=== PATIENT | female | born 1985 | race Caucasian/White ===

== ENCOUNTER 2016-12-24 09:44 | Inpatient (IN) ==
[2016-12-24] MEDS ORDERED: *HR* LORazepam 1 MG TABLET PO ONE (09:59)
--- NOTE | 2016-12-24 10:07 | Emergency Department Note ---
Disposition Clinical Impression: Bipolar 1 disorder, manic, moderate Disposition: Admitted As Inpatient Condition: Fair Time of Disposition: 13:11 Psych HPI - General Chief Complaint: ED Psychiatric Symptoms Stated Complaint: Psych Consult Time Seen by Provider: 12/24/16 09:56 Source: family Mode of arrival: private vehicle Limitations: no limitations Nursing Notes Reviewed: Yes Vital Signs Reviewed: Yes - History of Present Illness HPI Narrative: 31-year-old female patient presents to the emergency department in a manic episode. It is reported by her mother at the bedside that she is concerned that she possibly drank some "essential oils." Patient has had previous manic episodes in the past and was recently released from a psychiatric facility. She denies any recent trauma. Pt complaint: anxiety, other (manic) If medical clearance, reason: psychiatric condition Onset (ago): day(s) (12) Duration: intermittent, getting worse History of similar episodes: Yes Improves with: none Worsens with: none Associated Psychiatric Symptoms: homicidal ideation, racing thoughts Associated symptoms: Reports: denies other symptoms Traumatic symptoms: denies traumatic injury Treatments prior to arrival: psychiatric referral Self harm or harm to others: admits thoughts of harming others, denies having a plan - Related Data Home Medications Medication Instructions Recorded Confirmed Buspirone HCl [Buspar] 15 mg PO TID 12/24/16 Lamotrigine [Lamictal] 25 mg PO BID 12/24/16 12/24/16 Nicotine Polacrilex [Nicotine Gum] 2 mg BC Q2H PRN 12/24/16 12/24/16 Allergies Allergy/AdvReac Type Severity Reaction Status Date / Time chlorpromazine AdvReac See Verified 12/24/16 09:53 [From Thorazine] Comments divalproex sodium AdvReac See Verified 12/24/16 09:53 [From Depakote] Comments haloperidol [From Haldol] AdvReac See Verified 12/24/16 09:53 Comments All systems ED: reviewed and negative except as stated. Constitutional: Denies: fever, chills Cardiovascular: Denies: chest pain Respiratory: Denies: cough, dyspnea Gastrointestinal: Denies: abdominal pain, nausea, vomiting Genitourinary: Denies: urgency, dysuria, frequency Musculoskeletal: Denies: back pain, neck pain Integumentary: Denies: rash, abrasion, lesions Neurological: Denies: headache Psychiatric: Reports: anxiety, homicidal thoughts Past Medical History - Past Medical History Attestation: Yes The following information was validated with the patient. Source: patient, obtained from family, nursing notes reviewed Medical history: Reports: no medical history Psychiatric history: Reports: bipolar, PTSD - Social History Smoking Status: Current every day smoker Alcohol use: Reports: rarely Drug use: Reports: marijuana Physical Exam - General General appearance: alert, anxious, other (manic) - Head Head exam: atraumatic, normocephalic, normal inspection - Eye Eye exam: Present: normal appearance, PERRL - Neck Neck exam: Present: normal inspection, full ROM, trachea midline - Chest Chest inspection: Present: normal inspection, symmetric chest wall rise - Respiratory Respiratory exam: Present: normal lung sounds bilaterally. Absent: respiratory distress - Cardiovascular Cardiovascular exam: Present: regular rate, normal rhythm, normal heart sounds - Extremities Exam Extremities exam: Present: normal inspection, full ROM - Expanded Lower Extremity Exam Gait: observed and normal - Back Exam Back exam: Present: normal inspection, full ROM. Absent: tenderness - Neurological Exam Neurological exam: Present: alert, oriented X3 - Psychiatric Psychiatric exam: Present: anxious, manic, homicidal ideation - Skin Skin exam: Present: warm, dry, intact, normal color Course Vital Signs Temperature 98.3 F 12/24/16 09:47 Pulse Rate 88 12/24/16 09:47 Respiratory Rate 16 12/24/16 09:47 Blood Pressure 146/81 12/24/16 09:47 O2 Sat by Pulse Oximetry 99 12/24/16 09:47 Temperature 98.4 F 12/27/16 08:25 Pulse Rate 84 12/27/16 08:25 Respiratory Rate 16 12/27/16 08:25 Blood Pressure 112/72 12/27/16 08:25 O2 Sat by Pulse Oximetry 99 12/24/16 09:47 Oxygen Delivery Oxygen Delivery Room Air Psych - Lab Data Lab results reviewed: Yes I reviewed the patient's lab results. Result diagrams: 12/24/16 10:05 12/24/16 10:05 Lab Results 12/24/16 12/24/16 12/24/16 Range/Units 10:05 10:05 10:13 WBC 6.5 (4.3-11.1) K/mcL RBC 4.69 (3.82-4.97) M/mcL Hgb 14.5 (11.5-15.4) g/dL Hct 43.6 (35.3-44.9) % MCV 93.0 (83.0-100.0) fL MCH 30.9 (28.0-33.3) pg MCHC 33.3 (31.6-35.5) g/dL RDW 12.5 (11.5-14.5) % Plt Count 268 (140-400) K/mcL MPV 9.7 (9.4-12.4) fL Immature Gran % 0.2 (0-4) % Seg Neutrophils % 73.1 % Lymphocytes % 14.9 % Monocytes % 9.6 % Eosinophils % 1.4 % Basophils % 0.8 % Neutrophils # 4.8 (1.6-8.9) K/mcL Lymphocytes # 1.0 (0.6-4.6) K/mcL Monocytes # 0.6 (0.0-1.3) K/mcL Eosinophils # 0.1 (0.0-0.6) K/mcL Basophils # 0.1 (0.0-0.2) K/mcL Sodium 142 (136-145) mEq/L Potassium 3.3 L (3.5-4.5) mEq/L Chloride 109 (98-109) mEq/L Carbon Dioxide 24 (19-29) mEq/L BUN 13 (7-20) mg/dL Creatinine 0.76 (0.57-1.11) mg/dL Est GFR ( Amer) > 60 (> 60) Est GFR (Non-Af Amer) > 60 (> 60) BUN/Creatinine Ratio 17 (6-26) Glucose 103 H (70-99) mg/dL Calculated Osmolality 294 (280-300) Calcium 8.8 (8.6-10.8) mg/dL Urine Color Yellow (Yellow) Urine Clarity Clear (Clear) Urine pH 5.5 (5.0-8.0) pH Units Ur Specific [place] > 1.030 H (1.010-1.025) Urine Protein 30 H (Neg-Trace) mg/dL Urine Glucose (UA) Normal (Normal) mg/dL Urine Ketones Negative (Negative) mg/dL Urine Blood Negative (Negative) Urine Nitrite Negative (Negative) Urine Bilirubin Negative (Negative) Urine Urobilinogen Normal (Normal) mg/dL Ur Leukocyte Esterase Negative (Negative) Urine Microscopic RBC 3-5 H (0-3) per hpf Urine Microscopic WBC 5-15 H (0-3) per hpf Ur Squamous Epith Cells Many H (None-Few) per lpf Urine Bacteria Few (None-Few) per hpf Hyaline Casts None Seen (None-Few) per lpf Urine Test (Negative) Salicylates < 5.0 L (15-30) mg/dL Urine Opiates Screen (Ciwuqy=596) ng/mL Acetaminophen < 1.0 L (10-30) mcg/mL Ur Barbiturates Screen (Ypzpsy=099) ng/mL Ur Phencyclidine Scrn (Cutoff=25) ng/mL Ur Amphetamines Screen (Pgqugl=3448) ng/mL U Benzodiazepines Scrn (Rtesle=019) ng/mL Urine Cocaine Screen (Cutoff= 300) ng/mL U Marijuana (THC) Screen (Cutoff = 50) ng/mL Ethyl Alcohol < 10 (0-10) mg/dL 12/24/16 12/24/16 Range/Units 10:13 10:15 WBC (4.3-11.1) K/mcL RBC (3.82-4.97) M/mcL Hgb (11.5-15.4) g/dL Hct (35.3-44.9) % MCV (83.0-100.0) fL MCH (28.0-33.3) pg MCHC (31.6-35.5) g/dL RDW (11.5-14.5) % Plt Count (140-400) K/mcL MPV (9.4-12.4) fL Immature Gran % (0-4) % Seg Neutrophils % % Lymphocytes % % Monocytes % % Eosinophils % % Basophils % % Neutrophils # (1.6-8.9) K/mcL Lymphocytes # (0.6-4.6) K/mcL Monocytes # (0.0-1.3) K/mcL Eosinophils # (0.0-0.6) K/mcL Basophils # (0.0-0.2) K/mcL Sodium (136-145) mEq/L Potassium (3.5-4.5) mEq/L Chloride (98-109) mEq/L Carbon Dioxide (19-29) mEq/L BUN (7-20) mg/dL Creatinine (0.57-1.11) mg/dL Est GFR ( Amer) (> 60) Est GFR (Non-Af Amer) (> 60) BUN/Creatinine Ratio (6-26) Glucose (70-99) mg/dL Calculated Osmolality (280-300) Calcium (8.6-10.8) mg/dL Urine Color (Yellow) Urine Clarity (Clear) Urine pH (5.0-8.0) pH Units Ur Specific [place] (1.010-1.025) Urine Protein (Neg-Trace) mg/dL Urine Glucose (UA) (Normal) mg/dL Urine Ketones (Negative) mg/dL Urine Blood (Negative) Urine Nitrite (Negative) Urine Bilirubin (Negative) Urine Urobilinogen (Normal) mg/dL Ur Leukocyte Esterase (Negative) Urine Microscopic RBC (0-3) per hpf Urine Microscopic WBC (0-3) per hpf Ur Squamous Epith Cells (None-Few) per lpf Urine Bacteria (None-Few) per hpf Hyaline Casts (None-Few) per lpf Urine Test Negative (Negative) Salicylates (15-30) mg/dL Urine Opiates Screen Negative (Dbxfig=181) ng/mL Acetaminophen (10-30) mcg/mL Ur Barbiturates Screen Negative (Araacb=077) ng/mL Ur Phencyclidine Scrn Negative (Cutoff=25) ng/mL Ur Amphetamines Screen Negative (Nxmgmk=3726) ng/mL U Benzodiazepines Scrn Negative (Ohszio=606) ng/mL Urine Cocaine Screen Negative (Cutoff= 300) ng/mL U Marijuana (THC) Screen Positive H (Cutoff = 50) ng/mL Ethyl Alcohol (0-10) mg/dL Psychiatric Medical Clearance - Medical Clearance Checklist Medical History: No Social History Section defined Current Vitals: Last Vital Signs Temp 98.4 F 12/27/16 08:25 Pulse 84 12/27/16 08:25 Resp 16 12/27/16 08:25 BP 112/72 12/27/16 08:25 Pulse Ox 99 12/24/16 09:47 Abnormal Labs: Abnormal lab results Potassium 3.3 mEq/L (3.5-4.5) L 12/24/16 10:05 Glucose 103 mg/dL (70-99) H 12/24/16 10:05 Ur Specific [place] > 1.030 (1.010-1.025) H 12/24/16 10:13 Urine Protein 30 mg/dL (Neg-Trace) H 12/24/16 10:13 Urine Microscopic RBC 3-5 per hpf (0-3) H 12/24/16 10:13 Urine Microscopic WBC 5-15 per hpf (0-3) H 12/24/16 10:13 Ur Squamous Epith Cells Many per lpf (None-Few) H 12/24/16 10:13 Salicylates < 5.0 mg/dL (15-30) L 12/24/16 10:05 Acetaminophen < 1.0 mcg/mL (10-30) L 12/24/16 10:05 U Marijuana (THC) Screen Positive ng/mL (Cutoff = 50) H 12/24/16 10:15 Statement of Medical Clearance: I have evaluated the patient, reviewed diagnostic information, and certify that the patient's medical condition is sufficiently stable that transfer to the psychiatric unit does not pose a significant risk of deterioration. Attestation Statement - Attestation Attestation: For this encounter, I have reviewed the [employer] or PA documentation, treatment plan, and medical decision making; and I have had face to face time with this patient. 31-year-old with depression and suicidal ideation workup in the emergency department is negative. Patient remained stable. Patient will be admitted to want a
[2016-12-24 10:11] LABS: Basophils # 0.1 K/mcL (0.0-0.2); Basophils % 0.8 %; Eosinophils # 0.1 K/mcL (0.0-0.6); Eosinophils % 1.4 %; Hematocrit 43.6 % (35.3-44.9); Hemoglobin 14.5 g/dL (11.5-15.4); Immature Granulocytes % 0.2 % (0-4); Lymphocytes % 14.9 %; Mean Corpuscular HGB Conc 33.3 g/dL (31.6-35.5); Mean Corpuscular Hemoglobin 30.9 pg (28.0-33.3); Mean Platelet Volume 9.7 fL (9.4-12.4); Monocytes # 0.6 K/mcL (0.0-1.3); Monocytes % 9.6 %; Neutrophils # 4.8 K/mcL (1.6-8.9); Platelet Count 268 K/mcL (140-400); Red Blood Count 4.69 M/mcL (3.82-4.97); Red Cell Distribution Width 12.5 % (11.5-14.5); Segmented Neutrophils % 73.1 %
[2016-12-24 10:23] LABS: Bilirubin,Urine Negative (Negative); Blood,Urine Negative (Negative); Clarity,Urine Clear (Clear); Color,Urine Yellow (Yellow); Glucose,Urine (UA) Normal (Normal); Ketones,Urine Negative (Negative); Leukocyte Esterase,Urine Negative (Negative); Nitrite,Urine Negative (Negative); PH,Urine 5.5 pH Units (5.0-8.0); Protein,Urine 30 mg/dL (Neg-Trace); Specific Gravity,Urine > 1.030 (1.010-1.025); Urobilinogen,Urine Normal (Normal)
[2016-12-24 10:23] LABS: BUN/Creatinine Ratio 17 (6-26); Blood Urea Nitrogen 13 mg/dL (7-20); Calcium 8.8 mg/dL (8.6-10.8); Carbon Dioxide 24 mEq/L (19-29); Chloride 109 mEq/L (98-109); Glucose 103 mg/dL (70-99); Osmolality,Calculated 294 (280-300); Potassium 3.3 mEq/L (3.5-4.5); Sodium 142 mEq/L (136-145); eGFR For African Americans > 60 (> 60); eGFR For Non-African Americans > 60 (> 60)
[2016-12-24 10:24] LABS: Acetaminophen < 1.0 mcg/mL (10-30); Ethanol < 10 mg/dL (0-10); Salicylate < 5.0 mg/dL (15-30)
[2016-12-24 10:27] LABS: Bacteria,Urine Few per hpf (None-Few); Hyaline Casts,Urine None Seen per lpf (None-Few); Squamous Epithelial Cell,Urine Many per lpf (None-Few)
[2016-12-24 10:30] LABS: Amphetamine Screen,Urine Negative ng/mL (Cutoff=1000); Barbiturate Screen,Urine Negative ng/mL (Cutoff=200); Benzodiazepines Screen,Urine Negative ng/mL (Cutoff=200); Cannabinoid Screen,Urine Positive ng/mL (Cutoff = 50); Cocaine Screen,Urine Negative ng/mL (Cutoff= 300); Opiate Screen,Urine Negative ng/mL (Cutoff=300); Phencyclidine Screen,Urine Negative ng/mL (Cutoff=25)
[2016-12-24] MEDS ORDERED: *HR* LORazepam 1 MG TABLET PO PRN (17:51)
[2016-12-24] MEDS ORDERED: traZODone 50 MG TABLET PO PRN (17:51)
[2016-12-24] MEDS ORDERED: *HR* LORazepam 2 MG/ML VIAL IM PRN (17:51)
[2016-12-24] MEDS ORDERED: MOM Conc 10 ML UD.LIQ PO PRN (17:51)
[2016-12-24] MEDS ORDERED: Acetaminophen 325 MG TABLET PO PRN (17:51)
[2016-12-24] MEDS ORDERED: hydrOXYzine pamoate 25 MG CAPSULE PO PRN (17:51)
[2016-12-24] MEDS ORDERED: Mag Hydrox/Al Hydrox/Simeth 30 ML UDC PO PRN (17:51)
[2016-12-24] MEDS ORDERED: Ziprasidone 20 MG CAPSULE PO PRN (19:25)
[2016-12-24] MEDS ORDERED: Ziprasidone 20 MG CAPSULE PO SCH (20:00)
[2016-12-24] MEDS: lamoTRIgine 25 MG TABLET PO SCH (20:13)
[2016-12-24] MEDS: Nicotine 2 MG GUM BC PRN (20:33)
[2016-12-25] MEDS: lamoTRIgine 25 MG TABLET PO SCH ×2 (08:31→21:14)
--- NOTE | 2016-12-25 09:41 | Psychiatry History & Physical ---
Date of Encounter: 12/25/16 Time of Encounter: 09:35 History of Present Illness Patient Stated Chief Complaint: Manic episodes, noncompliance with medication, THC abuse Medicare Admission Attestation: For traditional Medicare patients the provided hospital inpatient services are reasonable and necessary and in the case of services not specified as inpatient -only under 42 CFR 419.22 (n), that they are appropriately provided as inpatient services in accordance 42 CFR 412.3. For Critical [facility] Hospital the patient may reasonably be expected to be discharged or transferred to a hospital within 96 hours after admission to the Critical [facility]. Admitted From: Emergency Dept History of Present Illness: Ms. Olson is a 31 year old female admitted from the emergency room for severe exacerbation disorder was manic depressive pressures speech or ideas and noncompliance with medication family was concerned about patient noncompliance. Patient is denying any suicidal ideation she is not interested in adding any medication that she is interested in continuing to use her marijuana. 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 Patient reports lack of sleep and increased energy and inability to complete tasks. Past Med Surg Social Fam HX - Past Medical History Medical history: no medical history - Past Psychiatric History Psychiatric history: Reports: bipolar, previous psychiatric hospitalization Past psychiatric history details: several hospitalizations for manic episodes most recently discharged from [facility]. Family psychiatric history: Unknown Family History of Suicide: Unknown - Social History Smoking Status: Current every day smoker Alcohol use: rarely Drug use: marijuana Medications & Allergies Buspirone HCl [Buspar] 15 mg PO TID 12/24/16 [History] Lamotrigine [Lamictal] 25 mg PO BID 12/24/16 [History] Nicotine Polacrilex [Nicotine Gum] 2 mg BC Q2H PRN 12/24/16 [History] Allergies chlorpromazine [From Thorazine] Adverse Reaction (Verified 12/24/16 09:53) See Comments makes violent divalproex sodium [From Depakote] Adverse Reaction (Verified 12/24/16 09:53) See Comments makes violent haloperidol [From Haldol] Adverse Reaction (Verified 12/24/16 09:53) See Comments violent Review of Systems Psychiatric: Reports: abnormal sleep pattern, mood swings, other (Manic episode) Mental Status Exam Patient orientation: Yes Person, Yes Time, Yes Place Level of alertness: Alert Patient appearance: Appropriate, Well Groomed Behavior: calm, cooperative, anxious, distractible Psychomotor activity: Increased Eye contact: Maintains Eye Contact Mood description: Elevated, Euphoric, Expansive, Labile Affect description: labile, euphoric Speech pattern: Disorganized, Pressured Speech volume: Loud Thought process: Linear, Goal Oriented, Tangential, Flight of Ideas, Racing Thought content: No Suicidal ideation, No Homicidal ideation, No Overt delusions Perceptual disturbances: No Auditory hallucinations, No Visual hallucinations Attention span: Capable of Focused Attention, Unable to Focus Memory description: Grossly Intact Patient reliability: Reliable Historian Intelligence estimate: Average Judgment: Limited Insight: Partial Results - Vital Signs Vital signs: Temp Pulse Resp BP Pulse Ox 98.2 F 77 16 108/72 99 12/25/16 09:00 12/25/16 09:00 12/25/16 09:00 12/25/16 09:00 12/24/16 09:47 - Labs Labs: Laboratory Last Values WBC 6.5 K/mcL (4.3-11.1) 12/24/16 10:05 RBC 4.69 M/mcL (3.82-4.97) 12/24/16 10:05 Hgb 14.5 g/dL (11.5-15.4) 12/24/16 10:05 Hct 43.6 % (35.3-44.9) 12/24/16 10:05 MCV 93.0 fL (83.0-100.0) 12/24/16 10:05 MCH 30.9 pg (28.0-33.3) 12/24/16 10:05 MCHC 33.3 g/dL (31.6-35.5) 12/24/16 10:05 RDW 12.5 % (11.5-14.5) 12/24/16 10:05 Plt Count 268 K/mcL (140-400) 12/24/16 10:05 MPV 9.7 fL (9.4-12.4) 12/24/16 10:05 Immature Gran % 0.2 % (0-4) 12/24/16 10:05 Seg Neutrophils % 73.1 % 12/24/16 10:05 Lymphocytes % 14.9 % 12/24/16 10:05 Monocytes % 9.6 % 12/24/16 10:05 Eosinophils % 1.4 % 12/24/16 10:05 Basophils % 0.8 % 12/24/16 10:05 Neutrophils # 4.8 K/mcL (1.6-8.9) 12/24/16 10:05 Lymphocytes # 1.0 K/mcL (0.6-4.6) 12/24/16 10:05 Monocytes # 0.6 K/mcL (0.0-1.3) 12/24/16 10:05 Eosinophils # 0.1 K/mcL (0.0-0.6) 12/24/16 10:05 Basophils # 0.1 K/mcL (0.0-0.2) 12/24/16 10:05 Sodium 142 mEq/L (136-145) 12/24/16 10:05 Potassium 3.3 mEq/L (3.5-4.5) L 12/24/16 10:05 Chloride 109 mEq/L (98-109) 12/24/16 10:05 Carbon Dioxide 24 mEq/L (19-29) 12/24/16 10:05 BUN 13 mg/dL (7-20) 12/24/16 10:05 Creatinine 0.76 mg/dL (0.57-1.11) 12/24/16 10:05 Est GFR ( Amer) > 60 (> 60) 12/24/16 10:05 Est GFR (Non-Af Amer) > 60 (> 60) 12/24/16 10:05 BUN/Creatinine Ratio 17 (6-26) 12/24/16 10:05 Glucose 103 mg/dL (70-99) H 12/24/16 10:05 Calculated Osmolality 294 (280-300) 12/24/16 10:05 Calcium 8.8 mg/dL (8.6-10.8) 12/24/16 10:05 Urine Color Yellow (Yellow) 12/24/16 10:13 Urine Clarity Clear (Clear) 12/24/16 10:13 Urine pH 5.5 pH Units (5.0-8.0) 12/24/16 10:13 Ur Specific [place] > 1.030 (1.010-1.025) H 12/24/16 10:13 Urine Protein 30 mg/dL (Neg-Trace) H 12/24/16 10:13 Urine Glucose (UA) Normal mg/dL (Normal) 12/24/16 10:13 Urine Ketones Negative mg/dL (Negative) 12/24/16 10:13 Urine Blood Negative (Negative) 12/24/16 10:13 Urine Nitrite Negative (Negative) 12/24/16 10:13 Urine Bilirubin Negative (Negative) 12/24/16 10:13 Urine Urobilinogen Normal mg/dL (Normal) 12/24/16 10:13 Ur Leukocyte Esterase Negative (Negative) 12/24/16 10:13 Urine Microscopic RBC 3-5 per hpf (0-3) H 12/24/16 10:13 Urine Microscopic WBC 5-15 per hpf (0-3) H 12/24/16 10:13 Ur Squamous Epith Cells Many per lpf (None-Few) H 12/24/16 10:13 Urine Bacteria Few per hpf (None-Few) 12/24/16 10:13 Hyaline Casts None Seen per lpf (None-Few) 12/24/16 10:13 Urine Test Negative (Negative) 12/24/16 10:13 Salicylates < 5.0 mg/dL (15-30) L 12/24/16 10:05 Urine Opiates Screen Negative ng/mL (Ctgcbw=620) 12/24/16 10:15 Acetaminophen < 1.0 mcg/mL (10-30) L 12/24/16 10:05 Ur Barbiturates Screen Negative ng/mL (Zkxewn=950) 12/24/16 10:15 Ur Phencyclidine Scrn Negative ng/mL (Cutoff=25) 12/24/16 10:15 Ur Amphetamines Screen Negative ng/mL (Ievwmq=1376) 12/24/16 10:15 U Benzodiazepines Scrn Negative ng/mL (Yxozii=731) 12/24/16 10:15 Urine Cocaine Screen Negative ng/mL (Cutoff= 300) 12/24/16 10:15 U Marijuana (THC) Screen Positive ng/mL (Cutoff = 50) H 12/24/16 10:15 Ethyl Alcohol < 10 mg/dL (0-10) 12/24/16 10:05 Assessment and Plan (1) Bipolar 1 disorder, manic, moderate Current visit: Yes Status: Acute Plan: Admit inpatient for safety and stabilization, Close observation, Suicide Precautions per unit protocol, Encourage participation in unit milieu, Group Therapy, Monitor sleep, Monitor appetite Additional Plan: Patient refuses any additional medication to stabilize her mood she went to continue his Lamictal appears and she told me that after leaving the hospital she would not resume medication. She will reduce Immediate is like marijuana. Risks, benefits, side effects, alternatives discussed w/pt: Yes Patient agreeable to treatment: No (2) Tetrahydrocannabinol (THC) use disorder, moderate, dependence Current visit: Yes Status: Acute Plan: Admit inpatient for safety and stabilization, Close observation, Suicide Precautions per unit protocol, Encourage participation in unit milieu, Group Therapy, Monitor sleep, Monitor appetite Risks, benefits, side effects, alternatives discussed w/pt: Yes Patient agreeable to treatment: No
[2016-12-25] MEDS: Nicotine 2 MG GUM BC PRN (21:13)
[2016-12-26] MEDS: lamoTRIgine 25 MG TABLET PO SCH ×2 (08:55→21:17)
--- NOTE | 2016-12-26 12:47 | Psychiatry Progress Note ---
Date of Encounter: 12/26/16 Time of Encounter: 12:36 Subjective Interval history: Patient seen for follow-up she continued to be manic with pressured speech, flight of ideas, grandiose delusions. Hostile, agitated, verbally abusive, loud , non-redirectable. She refused treatment, she wants to take her medication as she needed would not follow prescribing instructions. She is argumentative and disrespectful ,blames her mother for her illness. Her insight and judgment are impaired. Review of Systems Psychiatric: Reports: abnormal sleep pattern, auditory hallucinations, irritability, mood swings, other (Manic episode, agitated, hostile non- redirectable) Objective: Exam Patient orientation: Yes Person, Yes Time, Yes Place Level of alertness: Alert Patient appearance: Appropriate, Well Groomed, Bizarre Additional observations: Manic, hostile, verbally abusive, uncooperative Behavior: uncooperative, distractible, impulsive, talkative Psychomotor activity: Agitated Eye contact: Intense Contact Mood description: Elevated, Euphoric, Expansive, Labile, Irritable Affect description: labile, euphoric Speech pattern: Disorganized, Excessive, Pressured, Includes Profanity Speech volume: Loud Thought process: Loose Associations, Tangential, Flight of Ideas, Disorganized, Racing Thought content: No Suicidal ideation, No Homicidal ideation, No Overt delusions , Yes Ideas of reference, Yes Preoccupation, Yes Paranoid delusion, Yes Grandiose delusion, Yes Obsessive thoughts Perceptual disturbances: Yes Reacting to internal stimuli, Yes Auditory hallucinations, No Visual hallucinations Judgment: Limited Insight: Partial Results - Vital Signs Vital Signs: Temp Pulse Resp BP Pulse Ox 98.1 F 83 16 128/70 99 12/26/16 09:00 12/26/16 09:00 12/26/16 09:00 12/26/16 09:00 12/24/16 09:47 Assessment and Plan (1) Bipolar 1 disorder, manic, moderate Current visit: Yes Status: Acute Plan: Continue hospitalization, Close observation, Suicide Precautions per unit protocol, Encourage participation in unit milieu, Group Therapy, Monitor sleep, Monitor appetite Risks, benefits, side effects, alternatives discussed w/pt: Yes Patient agreeable to treatment: No (2) Tetrahydrocannabinol (THC) use disorder, moderate, dependence Current visit: Yes Status: Acute Plan: Continue hospitalization, Close observation, Suicide Precautions per unit protocol, Encourage participation in unit milieu, Group Therapy, Monitor sleep, Monitor appetite Risks, benefits, side effects, alternatives discussed w/pt: Yes Patient agreeable to treatment: No Consult Discharge Plan - Plan Referrals: NO,PCP [Primary Care Provider] -
[2016-12-26] MEDS ORDERED: Ziprasidone injection 20 MG/ML VIAL IM PRN (13:01)
[2016-12-26] MEDS: Nicotine 2 MG GUM BC PRN ×2 (17:23→22:36)
[2016-12-27] MEDS: Nicotine 2 MG GUM BC PRN ×2 (08:03→21:08)
[2016-12-27] MEDS: lamoTRIgine 25 MG TABLET PO SCH ×2 (08:25→21:07)
--- NOTE | 2016-12-27 14:43 | Psychiatry Progress Note ---
Date of Encounter: 12/27/16 Time of Encounter: 14:00 Subjective Interval history: Patient seen for follow-up with the nursing staff. Staff reported she is noncompliant with medication and refusing medication at times. She continued to be manic singing and dancing and irritable at times. She did not have any agitated episodes and did not require any when necessary medication. 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 She stated that she is in the hospital because her car was in the shop. Her speech is less pressured but continued to be disorganized. She had no insight into her illness. Review of Systems Psychiatric: Reports: abnormal sleep pattern, auditory hallucinations, irritability, mood swings, other (Manic episode, agitated, hostile non- redirectable) Objective: Exam Patient orientation: Yes Person, Yes Time, Yes Place Level of alertness: Alert Patient appearance: Appropriate, Well Groomed, Bizarre Behavior: uncooperative, distractible, impulsive, talkative Psychomotor activity: Agitated Eye contact: Intense Contact Mood description: Elevated, Euphoric, Expansive, Labile, Irritable Affect description: labile, euphoric Speech pattern: Disorganized, Excessive, Pressured, Includes Profanity Speech volume: Loud Thought process: Loose Associations, Tangential, Flight of Ideas, Disorganized, Racing Thought content: No Suicidal ideation, No Homicidal ideation, No Overt delusions , Yes Ideas of reference, Yes Preoccupation, Yes Paranoid delusion, Yes Grandiose delusion, Yes Obsessive thoughts Perceptual disturbances: Yes Reacting to internal stimuli, Yes Auditory hallucinations, No Visual hallucinations Judgment: Limited Insight: Partial Results - Vital Signs Vital Signs: Temp Pulse Resp BP Pulse Ox 98.4 F 84 16 112/72 99 12/27/16 08:25 12/27/16 08:25 12/27/16 08:25 12/27/16 08:25 12/24/16 09:47 Assessment and Plan (1) Bipolar 1 disorder, manic, moderate Current visit: Yes Status: Acute Plan: Continue hospitalization, Close observation, Suicide Precautions per unit protocol, Encourage participation in unit milieu, Group Therapy, Monitor sleep, Monitor appetite Risks, benefits, side effects, alternatives discussed w/pt: Yes Patient agreeable to treatment: No (2) Tetrahydrocannabinol (THC) use disorder, moderate, dependence Current visit: Yes Status: Acute Plan: Continue hospitalization, Close observation, Suicide Precautions per unit protocol, Encourage participation in unit milieu, Group Therapy, Monitor sleep, Monitor appetite Risks, benefits, side effects, alternatives discussed w/pt: Yes Patient agreeable to treatment: No Consult Discharge Plan - Plan Referrals: NO,PCP [Primary Care Provider] -
[2016-12-28] MEDS: Nicotine 2 MG GUM BC PRN ×3 (03:15→21:49)
[2016-12-28] MEDS: lamoTRIgine 25 MG TABLET PO SCH ×2 (08:30→21:48)
--- NOTE | 2016-12-28 13:50 | Psychiatry Progress Note ---
Date of Encounter: 12/28/16 Time of Encounter: 13:30 Subjective Interval history: Patient was observed and not interviewed formally because of her irritability as reported by nursing staff. Staff report that she is easily agitated and irritable but did not require when necessary medication. She continues to refuse medication on and off and insisted that this medication should be most when necessary. Otherwise she is loud then seeing' and intimacy because of patient's complaint was the nursing staff. Otherwise she did not report any physical symptoms or problem with sleep. Overall she continue to show manic and hypomanic behavior and continued to display grandiose delusions. She also continue to refuse any additional medication. Review of Systems Psychiatric: Reports: abnormal sleep pattern, auditory hallucinations, irritability, mood swings, other (Manic episode, agitated, hostile non- redirectable) Objective: Exam Patient orientation: Yes Person, Yes Time, Yes Place Level of alertness: Alert Patient appearance: Appropriate, Well Groomed, Bizarre Additional observations: Listening to music,, singing and dancing. Behavior: uncooperative, distractible, impulsive, talkative Psychomotor activity: Increased Eye contact: Intense Contact Mood description: Elevated, Euphoric, Expansive, Labile, Irritable Affect description: labile, euphoric Speech pattern: Disorganized, Excessive, Pressured, Includes Profanity Speech volume: Loud Thought process: Loose Associations, Tangential, Flight of Ideas, Disorganized, Racing Thought content: No Suicidal ideation, No Homicidal ideation, No Overt delusions , Yes Ideas of reference, Yes Preoccupation, Yes Paranoid delusion, Yes Grandiose delusion, Yes Obsessive thoughts Perceptual disturbances: Yes Reacting to internal stimuli, Yes Auditory hallucinations, No Visual hallucinations Judgment: Limited Insight: Partial Results - Vital Signs Vital Signs: Temp Pulse Resp BP Pulse Ox 98 F 73 16 118/75 99 12/28/16 08:53 12/28/16 08:53 12/28/16 08:53 12/28/16 08:53 12/24/16 09:47 Assessment and Plan (1) Bipolar 1 disorder, manic, moderate Current visit: Yes Status: Acute Plan: Continue hospitalization, Close observation, Suicide Precautions per unit protocol, Encourage participation in unit milieu, Group Therapy, Monitor sleep, Monitor appetite Risks, benefits, side effects, alternatives discussed w/pt: Yes Patient agreeable to treatment: No (2) Tetrahydrocannabinol (THC) use disorder, moderate, dependence Current visit: Yes Status: Acute Plan: Continue hospitalization, Close observation, Suicide Precautions per unit protocol, Encourage participation in unit milieu, Group Therapy, Monitor sleep, Monitor appetite Risks, benefits, side effects, alternatives discussed w/pt: Yes Patient agreeable to treatment: No Consult Discharge Plan - Plan Referrals: NO,PCP [Primary Care Provider] -
[2016-12-29] MEDS: lamoTRIgine 25 MG TABLET PO SCH ×2 (08:04→21:11)
--- NOTE | 2016-12-29 15:48 | Psychiatry Progress Note ---
Date of Encounter: 12/29/16 Time of Encounter: 12:30 Subjective Interval history: Patient reports that she has no difficulty sleeping and ever since that she has been here she has been so impressed with this facility that she considers this to be the best facility. Patient reports that she does not understand why more doctors are not wanting to prescribe medical marijuana. She believes it is the acute overall for most of human misery. She reports taking cannabis to help with her moods as well as with her anxiety. She believes that the prescribed medications are not to be taken every day. She has decided to take them sparingly on occasion when she believes her mood is out of control. Patient believes she does not need to take any other recommended medications as there is nothing wrong with her. She believes that she is having poor energy wipes with her mother but that can be corrected in other ways. Review of Systems Psychiatric: Reports: abnormal sleep pattern, auditory hallucinations, irritability, mood swings, other (Manic episode, agitated, hostile non- redirectable, bizarre grandiose delusions ) Objective: Exam Patient orientation: Yes Person, Yes Time, Yes Place Level of alertness: Alert Patient appearance: Appropriate, Well Groomed, Bizarre, Thin Additional observations: Singing loudly in the shower per nurses report. Behavior: uncooperative, distractible, impulsive, talkative Psychomotor activity: Increased Eye contact: Intense Contact Mood description: Elevated, Euphoric, Expansive, Labile, Irritable Affect description: labile, euphoric Speech pattern: Disorganized, Excessive, Includes Profanity, Other ( Hyperverbosity with difficulty in interrupting her flow of thoughts.) Speech volume: Loud Thought process: Loose Associations, Tangential, Flight of Ideas, Disorganized, Racing Thought content: No Suicidal ideation, No Homicidal ideation, No Overt delusions , Yes Ideas of reference, Yes Preoccupation, Yes Paranoid delusion, Yes Grandiose delusion (Pt believes all MDs should be jumping to prescibe Cannibis. Wants [facility] advocacy grps in this Hosp.), Yes Obsessive thoughts Perceptual disturbances: Yes Reacting to internal stimuli, No Visual hallucinations Judgment: Limited Insight: Partial Results - Vital Signs Vital Signs: Temp Pulse Resp BP Pulse Ox 98 F 83 16 123/77 99 12/29/16 09:00 12/29/16 09:00 12/29/16 09:00 12/29/16 09:00 12/24/16 09:47 Assessment and Plan (1) Bipolar 1 disorder, manic, moderate Current visit: Yes Status: Acute Plan: Continue hospitalization, Close observation, Suicide Precautions per unit protocol, Encourage participation in unit milieu, Group Therapy, Monitor sleep, Monitor appetite Additional Plan: Patient refuses any additional medication to stabilize her mood she wants to continue his Lamictal appears and she told me that after leaving the hospital she would not resume medication. She will reduce Immediately. She only likes marijuana.She wanted this MD to reduce her already low doses of meds. Risks, benefits, side effects, alternatives discussed w/pt: Yes Patient agreeable to treatment: No (2) Tetrahydrocannabinol (THC) use disorder, moderate, dependence Current visit: Yes Status: Acute Plan: Continue hospitalization, Close observation, Suicide Precautions per unit protocol, Encourage participation in unit milieu, Group Therapy, Monitor sleep, Monitor appetite Risks, benefits, side effects, alternatives discussed w/pt: Yes Patient agreeable to treatment: No Consult Discharge Plan - Plan Referrals: NO,PCP [Primary Care Provider] -
[2016-12-29] MEDS: Nicotine 2 MG GUM BC PRN (21:11)
[2016-12-30] MEDS: lamoTRIgine 25 MG TABLET PO SCH ×2 (08:12→21:35)
--- NOTE | 2016-12-30 13:03 | Psychiatry Progress Note ---
Date of Encounter: 12/30/16 Time of Encounter: 12:52 Subjective Interval history: Pt reports that she is feeling quite frustrated taht she does not feel she needs to be here and can't get to go home. She slept 2 hrs last night. She does not feel any med adjustments are needed because she does not rely on meds for her moods. She takes Cannibis to regulate it and it works the best. She has lots of energy despite lack of sleep. Her moods do tend to switch very frequently. Review of Systems Constitutional: Denies: fever, chills, weakness, weight change Eyes: Denies: eye pain, vision change Ears, Nose, Throat: Denies: ear pain, throat pain, dental pain, hearing loss, congestion Cardiovascular: Denies: chest pain, palpitations, dyspnea on exertion Respiratory: Denies: cough, dyspnea, wheezes Gastrointestinal: Denies: abdominal pain, nausea, vomiting, diarrhea, constipation Musculoskeletal: Denies: joint swelling, joint pain Neurological: Denies: headache, weakness, numbness, memory loss Psychiatric: Reports: abnormal sleep pattern, auditory hallucinations, difficulty concentrating, irritability, mood swings, other (Manic episode, agitated, hostile non-redirectable, bizarre grandiose delusions, insomnia) Objective: Exam Patient orientation: Yes Person, Yes Time, Yes Place Level of alertness: Alert, Other Patient appearance: Appropriate, Well Groomed, Bizarre, Thin Behavior: uncooperative, distractible, impulsive, talkative Psychomotor activity: Increased Eye contact: Intense Contact Mood description: Elevated, Euphoric, Expansive, Labile, Irritable Affect description: labile, euphoric Speech pattern: Disorganized, Excessive, Includes Profanity, Other ( Hyperverbosity with difficulty in interrupting her flow of thoughts.) Speech volume: Loud Thought process: Loose Associations, Tangential, Flight of Ideas, Disorganized, Racing Thought content: No Suicidal ideation, No Homicidal ideation, No Overt delusions , Yes Ideas of reference, Yes Preoccupation, Yes Paranoid delusion, Yes Grandiose delusion (Pt believes all MDs should be jumping to prescibe Cannibis. Wants [facility] advocacy grps in this Hosp.), Yes Obsessive thoughts Perceptual disturbances: Yes Reacting to internal stimuli, No Visual hallucinations Judgment: Limited Insight: Minimal Results - Vital Signs Vital Signs: Temp Pulse Resp BP Pulse Ox 98.3 F 77 16 123/83 99 12/30/16 08:58 12/30/16 08:58 12/30/16 08:58 12/30/16 08:58 12/24/16 09:47 Assessment and Plan (1) Bipolar 1 disorder, manic, moderate Current visit: Yes Status: Acute Plan: Continue hospitalization, Close observation, Suicide Precautions per unit protocol, Encourage participation in unit milieu, Group Therapy, Monitor sleep, Monitor appetite Risks, benefits, side effects, alternatives discussed w/pt: Yes Patient agreeable to treatment: No (2) Tetrahydrocannabinol (THC) use disorder, moderate, dependence Current visit: Yes Status: Acute Plan: Continue hospitalization, Close observation, Suicide Precautions per unit protocol, Encourage participation in unit milieu, Group Therapy, Monitor sleep, Monitor appetite Risks, benefits, side effects, alternatives discussed w/pt: Yes Patient agreeable to treatment: No (3) Bipolar disorder with psychotic features Current visit: Yes Status: Acute Plan: Continue hospitalization, Close observation, Encourage participation in unit milieu, Group Therapy, Monitor sleep, Monitor appetite, Family/Supportive other meeting Risks, benefits, side effects, alternatives discussed w/pt: Yes Patient agreeable to treatment: No (Pt reports using cannibis to treat Bipolar d/o) (4) Bipolar disorder with psychotic features Current visit: Yes Status: Acute Plan: Continue hospitalization, Close observation, Encourage participation in unit milieu, Group Therapy, Monitor sleep, Monitor appetite Consult Discharge Plan - Plan Referrals: [facility] [Outside] (To establish as a client, you may walk in any Thursday from @ 9:30am 10:30am, from 12:30pm 1:30pm, or Thursday from 8:30am 9:30am. You will have an initial assessment when you walk-in. The assessment will last two hours. Please bring your date of , social security number, proof of address and proof of income to this appointment.) [facility] [Outside] - 01/07/17 10:45 am (The above appointment is with Elisa Gilliland. Please arrive 15 minutes early for paperwork. Please bring photo ID and proof of income for sliding fee determination. )
[2016-12-30] MEDS: Nicotine 2 MG GUM BC PRN (15:41)
[2016-12-31] MEDS: lamoTRIgine 25 MG TABLET PO SCH (08:19)
--- NOTE | 2016-12-31 15:17 | Psychiatry Progress Note ---
Date of Encounter: 12/31/16 Time of Encounter: 15:08 Subjective Interval history: Pt reorts that she was very angry about the court's decision about her having to stay here but she is not as angry now. She slept more last night. Review of Systems Psychiatric: Reports: difficulty concentrating, irritability, mood swings, other (Manic episode, agitated, hostile non-redirectable, bizarre grandiose delusions, insomnia) Objective: Exam Patient orientation: Yes Person, Yes Time, Yes Place Level of alertness: Alert, Other Patient appearance: Appropriate, Well Groomed, Bizarre, Thin Behavior: uncooperative, distractible, impulsive, talkative Psychomotor activity: Increased Eye contact: Intense Contact Mood description: Elevated, Euphoric, Expansive, Labile, Irritable Affect description: labile, euphoric Speech pattern: Disorganized, Excessive, Includes Profanity, Other ( Hyperverbosity with difficulty in interrupting her flow of thoughts.) Speech volume: Loud Thought process: Loose Associations, Tangential, Flight of Ideas, Disorganized, Racing Thought content: No Suicidal ideation, No Homicidal ideation, No Overt delusions , Yes Ideas of reference, Yes Preoccupation, Yes Paranoid delusion, Yes Grandiose delusion (Pt [facility] Wants [facility] gr[facility] in this Hosp.), Yes Obsessive thoughts Perceptual disturbances: Yes Reacting to internal stimuli, No Visual hallucinations Judgment: Limited Insight: Minimal Results - Vital Signs Vital Signs: Temp Pulse Resp BP Pulse Ox 97.8 F 83 18 131/84 99 12/31/16 08:33 12/31/16 08:33 12/31/16 08:33 12/31/16 08:33 12/24/16 09:47 Assessment and Plan (1) Bipolar 1 disorder, manic, moderate Current visit: Yes Status: Acute Plan: Continue hospitalization, Close observation, Suicide Precautions per unit protocol, Encourage participation in unit milieu, Group Therapy, Monitor sleep, Monitor appetite Additional Plan: Will start [place] [facility] tonight. Risks, benefits, side effects, alternatives discussed w/pt: Yes Patient agreeable to treatment: No (2) Tetrahydrocannabinol (THC) use disorder, moderate, dependence Current visit: Yes Status: Acute Plan: Continue hospitalization, Close observation, Suicide Precautions per unit protocol, Encourage participation in unit milieu, Group Therapy, Monitor sleep, Monitor appetite Risks, benefits, side effects, alternatives discussed w/pt: Yes Patient agreeable to treatment: No (3) Bipolar disorder with psychotic features Current visit: Yes Status: Acute Plan: Continue hospitalization, Close observation, Encourage participation in unit milieu, Group Therapy, Monitor sleep, Monitor appetite, Family/Supportive other meeting Risks, benefits, side effects, alternatives discussed w/pt: Yes Patient agreeable to treatment: No (Pt reports using cannibis to treat Bipolar d/o) (4) Bipolar disorder with psychotic features Current visit: Yes Status: Acute Plan: Continue hospitalization, Close observation, Encourage participation in unit milieu, Group Therapy, Monitor sleep, Monitor appetite Consult Discharge Plan - Plan Referrals: [facility] [Outside] (To establish as a client, you may walk in any Thursday from @ 9:30am 10:30am, from 12:30pm 1:30pm, or Thursday from 8:30am 9:30am. You will have an initial assessment when you walk-in. The assessment will last two hours. Please bring your date of , social security number, proof of address and proof of income to this appointment.) [facility] [Outside] - 01/07/17 10:45 am (The above appointment is with Elisa Gilliland. Please arrive 15 minutes early for paperwork. Please bring photo ID and proof of income for sliding fee determination. )
[2016-12-31] MEDS ORDERED: Lithium Carbonate ER 300 MG TABLET.ER PO SCH (21:00)
[2016-12-31] MEDS: Nicotine 2 MG GUM BC PRN (22:06)
--- NOTE | 2017-01-01 18:41 | Psychiatry Progress Note ---
Date of Encounter: 01/01/17 Time of Encounter: 18:39 Subjective Interval history: Pt reports that she tolerated [place] well thus far. She was able to sit and watch TV something she has not been able to do for a while. She is upset at her mother for not coming to see her. Review of Systems Psychiatric: Reports: difficulty concentrating, irritability, mood swings, other (Still having manic symptoms of racing thoughts and tangential thoughts.) Objective: Exam Patient orientation: Yes Person, Yes Time, Yes Place Level of alertness: Alert, Other Patient appearance: Appropriate, Well Groomed, Bizarre, Thin Behavior: uncooperative, distractible, impulsive, talkative Psychomotor activity: Increased Eye contact: Intense Contact Mood description: Elevated, Euphoric, Expansive, Labile, Irritable Affect description: labile, euphoric Speech pattern: Disorganized, Excessive, Includes Profanity, Other ( Hyperverbosity with difficulty in interrupting her flow of thoughts.) Speech volume: Loud Thought process: Loose Associations, Tangential, Flight of Ideas, Disorganized, Racing Thought content: No Suicidal ideation, No Homicidal ideation, No Overt delusions , Yes Ideas of reference, Yes Preoccupation, Yes Paranoid delusion, Yes Grandiose delusion (Pt believes all MDs should be jumping to prescibe Cannibis. Wants [facility] advocacy grps in this Hosp.), Yes Obsessive thoughts Perceptual disturbances: Yes Reacting to internal stimuli, No Visual hallucinations Judgment: Limited Insight: Minimal Results - Vital Signs Vital Signs: Temp Pulse Resp BP Pulse Ox 98.2 F 67 16 113/67 99 01/01/17 09:00 01/01/17 09:00 01/01/17 09:00 01/01/17 09:00 12/24/16 09:47 Assessment and Plan (1) Bipolar 1 disorder, manic, moderate Current visit: Yes Status: Acute Plan: Continue hospitalization, Close observation, Suicide Precautions per unit protocol, Encourage participation in unit milieu, Group Therapy, Monitor sleep, Monitor appetite Additional Plan: Will increase [place] . Risks, benefits, side effects, alternatives discussed w/pt: Yes Patient agreeable to treatment: No (2) Tetrahydrocannabinol (THC) use disorder, moderate, dependence Current visit: Yes Status: Acute Plan: Continue hospitalization, Close observation, Suicide Precautions per unit protocol, Encourage participation in unit milieu, Group Therapy, Monitor sleep, Monitor appetite Risks, benefits, side effects, alternatives discussed w/pt: Yes Patient agreeable to treatment: No (3) Bipolar disorder with psychotic features Current visit: Yes Status: Acute Plan: Continue hospitalization, Close observation, Encourage participation in unit milieu, Group Therapy, Monitor sleep, Monitor appetite, Family/Supportive other meeting Risks, benefits, side effects, alternatives discussed w/pt: Yes Patient agreeable to treatment: No (Pt reports using cannibis to treat Bipolar d/o) (4) Bipolar disorder with psychotic features Current visit: Yes Status: Acute Plan: Continue hospitalization, Close observation, Encourage participation in unit milieu, Group Therapy, Monitor sleep, Monitor appetite Consult Discharge Plan - Plan Referrals: [facility] [Outside] (To establish as a client, you may walk in any Thursday from @ 9:30am 10:30am, from 12:30pm 1:30pm, or Thursday from 8:30am 9:30am. You will have an initial assessment when you walk-in. The assessment will last two hours. Please bring your date of , social security number, proof of address and proof of income to this appointment.) [facility] [Outside] - 01/07/17 10:45 am (The above appointment is with Elisa Gilliland. Please arrive 15 minutes early for paperwork. Please bring photo ID and proof of income for sliding fee determination. )
[2017-01-01] MEDS ORDERED: Lithium Carbonate ER 450 MG TABLET.ER PO SCH (21:00)
[2017-01-01] MEDS: Nicotine 2 MG GUM BC PRN (22:13)
--- NOTE | 2017-01-02 17:46 | Psychiatry Progress Note ---
Date of Encounter: 01/02/17 Time of Encounter: 17:43 Subjective Interval history: Pt reports that she is tolerating [place] well. She slept more than she has ever slept here. She is still having surges of energy. Review of Systems Psychiatric: Reports: anxiety, abnormal sleep pattern, difficulty concentrating , irritability, mood swings, panic attacks, other (Still having manic symptoms of racing thoughts and tangential thoughts.) Objective: Exam Patient orientation: Yes Person, Yes Time, Yes Place Level of alertness: Alert, Other Patient appearance: Appropriate, Well Groomed, Bizarre, Thin Behavior: agitated, uncooperative, distractible, impulsive, talkative Psychomotor activity: Increased Eye contact: Intense Contact Mood description: Elevated, Euphoric, Expansive, Labile, Irritable Affect description: labile, euphoric Speech pattern: Disorganized, Excessive, Includes Profanity, Other ( Hyperverbosity with difficulty in interrupting her flow of thoughts.) Speech volume: Loud Thought process: Loose Associations, Tangential, Flight of Ideas, Disorganized, Racing Thought content: No Suicidal ideation, No Homicidal ideation, No Overt delusions , Yes Ideas of reference, Yes Preoccupation, Yes Paranoid delusion, Yes Grandiose delusion (Pt believes all MDs should be jumping to prescibe Cannibis. Wants [facility] advocacy grps in this Hosp.), Yes Obsessive thoughts Perceptual disturbances: Yes Reacting to internal stimuli, No Visual hallucinations Judgment: Limited Insight: Minimal Results - Vital Signs Vital Signs: Temp Pulse Resp BP Pulse Ox 98.6 F 77 16 126/69 99 01/02/17 09:00 01/02/17 09:00 01/02/17 09:00 01/02/17 09:00 12/24/16 09:47 Assessment and Plan (1) Bipolar 1 disorder, manic, moderate Current visit: Yes Status: Acute Plan: Continue hospitalization, Close observation, Suicide Precautions per unit protocol, Encourage participation in unit milieu, Group Therapy, Monitor sleep, Monitor appetite Additional Plan: Increase [place] dose and check level. Risks, benefits, side effects, alternatives discussed w/pt: Yes Patient agreeable to treatment: No (2) Tetrahydrocannabinol (THC) use disorder, moderate, dependence Current visit: Yes Status: Acute Plan: Continue hospitalization, Close observation, Suicide Precautions per unit protocol, Encourage participation in unit milieu, Group Therapy, Monitor sleep, Monitor appetite Risks, benefits, side effects, alternatives discussed w/pt: Yes Patient agreeable to treatment: No (3) Bipolar disorder with psychotic features Current visit: Yes Status: Acute Plan: Continue hospitalization, Close observation, Encourage participation in unit milieu, Group Therapy, Monitor sleep, Monitor appetite, Family/Supportive other meeting Risks, benefits, side effects, alternatives discussed w/pt: Yes Patient agreeable to treatment: No (Pt reports using cannibis to treat Bipolar d/o) (4) Bipolar disorder with psychotic features Current visit: Yes Status: Acute Plan: Continue hospitalization, Close observation, Encourage participation in unit milieu, Group Therapy, Monitor sleep, Monitor appetite Consult Discharge Plan - Plan Referrals: [facility] [Outside] (To establish as a client, you may walk in any Thursday from @ 9:30am 10:30am, from 12:30pm 1:30pm, or Thursday from 8:30am 9:30am. You will have an initial assessment when you walk-in. The assessment will last two hours. Please bring your date of , social security number, proof of address and proof of income to this appointment.) [facility] [Outside] - 01/07/17 10:45 am (The above appointment is with Elisa Gilliland. Please arrive 15 minutes early for paperwork. Please bring photo ID and proof of income for sliding fee determination. )
[2017-01-02] MEDS: Nicotine 2 MG GUM BC PRN (20:33)
[2017-01-02] MEDS ORDERED: Lithium Carbonate ER 300 MG TABLET.ER PO SCH (21:00)
[2017-01-03] MEDS: Nicotine 2 MG GUM BC PRN ×2 (09:28→19:21)
--- NOTE | 2017-01-03 16:14 | Psychiatry Progress Note ---
Date of Encounter: 01/03/17 Time of Encounter: 16:09 Subjective Interval history: Pt reports that she was upset at a peer who was treating her poorly. She is tolerating [place] well. Slept 5.5 hrs. She is engaging other peers in art therapy which is a positive development. Review of Systems Psychiatric: Reports: anxiety, abnormal sleep pattern, difficulty concentrating , irritability, mood swings, panic attacks, other (Still having manic symptoms of racing thoughts and tangential thoughts.) Objective: Exam Patient orientation: Yes Person, Yes Time, Yes Place, Yes Circumstance Level of alertness: Alert, Other Patient appearance: Appropriate, Well Groomed, Thin Behavior: cooperative, agitated, uncooperative, distractible, talkative Psychomotor activity: Increased Eye contact: Maintains Eye Contact Mood description: Elevated, Euphoric, Expansive, Labile, Irritable Affect description: labile, euphoric Speech pattern: Disorganized, Excessive, Includes Profanity, Other ( Hyperverbosity with difficulty in interrupting her flow of thoughts.) Speech volume: Normal Thought process: Loose Associations, Tangential, Flight of Ideas, Disorganized, Racing Thought content: No Suicidal ideation, No Homicidal ideation, No Overt delusions , Yes Ideas of reference, Yes Preoccupation, Yes Paranoid delusion, Yes Grandiose delusion (Pt believes all MDs should be jumping to prescibe Cannibis. Wants MJ advocacy grps in this Hosp.), Yes Obsessive thoughts Perceptual disturbances: Yes Reacting to internal stimuli, No Visual hallucinations Judgment: Limited Insight: Minimal Results - Vital Signs Vital Signs: Temp Pulse Resp BP Pulse Ox 98.8 F 93 18 122/82 99 01/03/17 09:00 01/03/17 09:00 01/03/17 09:00 01/03/17 09:00 12/24/16 09:47 Assessment and Plan (1) Bipolar 1 disorder, manic, moderate Current visit: Yes Status: Acute Plan: Continue hospitalization, Close observation, Suicide Precautions per unit protocol, Encourage participation in unit milieu, Group Therapy, Monitor sleep, Monitor appetite Additional Plan: Increase [place] to 900 mg hs Risks, benefits, side effects, alternatives discussed w/pt: Yes Patient agreeable to treatment: No (2) Tetrahydrocannabinol (THC) use disorder, moderate, dependence Current visit: Yes Status: Acute Plan: Continue hospitalization, Close observation, Suicide Precautions per unit protocol, Encourage participation in unit milieu, Group Therapy, Monitor sleep, Monitor appetite Risks, benefits, side effects, alternatives discussed w/pt: Yes Patient agreeable to treatment: No (3) Bipolar disorder with psychotic features Current visit: Yes Status: Acute Plan: Continue hospitalization, Close observation, Encourage participation in unit milieu, Group Therapy, Monitor sleep, Monitor appetite, Family/Supportive other meeting Risks, benefits, side effects, alternatives discussed w/pt: Yes Patient agreeable to treatment: No (Pt reports using cannibis to treat Bipolar d/o) (4) Bipolar disorder with psychotic features Current visit: Yes Status: Acute Plan: Continue hospitalization, Close observation, Encourage participation in unit milieu, Group Therapy, Monitor sleep, Monitor appetite Consult Discharge Plan - Plan Referrals: [facility] [Outside] (To establish as a client, you may walk in any Thursday from @ 9:30am 10:30am, from 12:30pm 1:30pm, or Thursday from 8:30am 9:30am. You will have an initial assessment when you walk-in. The assessment will last two hours. Please bring your date of , social security number, proof of address and proof of income to this appointment.) [facility] [Outside] - 01/07/17 10:45 am (The above appointment is with Elisa Gilliland. Please arrive 15 minutes early for paperwork. Please bring photo ID and proof of income for sliding fee determination. )
[2017-01-03] MEDS: Lithium Carbonate ER 450 MG TABLET.ER PO SCH (21:03)
[2017-01-04] MEDS: Nicotine 2 MG GUM BC PRN ×2 (11:05→21:24)
--- NOTE | 2017-01-04 12:10 | Psychiatry Progress Note ---
Date of Encounter: 01/04/17 Time of Encounter: 12:08 Subjective Interval history: Pt reports taht she had some sleep last night. She is beginning to realize taht she was in a manic state but does not think she is now in one. She tolerated [place] ER 900 mg well. Review of Systems Psychiatric: Reports: anxiety, abnormal sleep pattern, difficulty concentrating , irritability, mood swings, panic attacks, other (Still having manic symptoms of racing thoughts and tangential thoughts.) Objective: Exam Patient orientation: Yes Person, Yes Time, Yes Place, Yes Circumstance Level of alertness: Alert, Other Patient appearance: Appropriate, Well Groomed, Thin Behavior: cooperative, agitated, uncooperative, distractible, impulsive, talkative Psychomotor activity: Increased Eye contact: Maintains Eye Contact Mood description: Elevated, Euphoric, Expansive, Labile, Irritable Affect description: labile, euphoric Speech pattern: Disorganized, Excessive, Includes Profanity, Other ( Hyperverbosity with difficulty in interrupting her flow of thoughts.) Speech volume: Normal Thought process: Loose Associations, Tangential, Flight of Ideas, Disorganized, Racing Thought content: No Suicidal ideation, No Homicidal ideation, No Overt delusions , Yes Ideas of reference, Yes Preoccupation, Yes Paranoid delusion, Yes Grandiose delusion (Pt believes all MDs should be jumping to prescibe Cannibis. Wants MJ advocacy grps in this Hosp.), Yes Obsessive thoughts Perceptual disturbances: Yes Reacting to internal stimuli, No Visual hallucinations Judgment: Limited Insight: Minimal Results - Vital Signs Vital Signs: Temp Pulse Resp BP Pulse Ox 98.4 F 77 16 104/71 99 01/04/17 09:00 01/04/17 09:00 01/04/17 09:00 01/04/17 09:00 12/24/16 09:47 Assessment and Plan (1) Bipolar 1 disorder, manic, moderate Current visit: Yes Status: Acute Plan: Continue hospitalization, Close observation, Suicide Precautions per unit protocol, Encourage participation in unit milieu, Group Therapy, Monitor sleep, Monitor appetite Additional Plan: Check [place] level in 2 days. Risks, benefits, side effects, alternatives discussed w/pt: Yes Patient agreeable to treatment: No (2) Tetrahydrocannabinol (THC) use disorder, moderate, dependence Current visit: Yes Status: Acute Plan: Continue hospitalization, Close observation, Suicide Precautions per unit protocol, Encourage participation in unit milieu, Group Therapy, Monitor sleep, Monitor appetite Risks, benefits, side effects, alternatives discussed w/pt: Yes Patient agreeable to treatment: No (3) Bipolar disorder with psychotic features Current visit: Yes Status: Acute Plan: Continue hospitalization, Close observation, Encourage participation in unit milieu, Group Therapy, Monitor sleep, Monitor appetite, Family/Supportive other meeting Risks, benefits, side effects, alternatives discussed w/pt: Yes Patient agreeable to treatment: No (Pt reports using cannibis to treat Bipolar d/o) (4) Bipolar disorder with psychotic features Current visit: Yes Status: Acute Plan: Continue hospitalization, Close observation, Encourage participation in unit milieu, Group Therapy, Monitor sleep, Monitor appetite Consult Discharge Plan - Plan Referrals: [facility] [Outside] (To establish as a client, you may walk in any Thursday from @ 9:30am 10:30am, from 12:30pm 1:30pm, or Thursday from 8:30am 9:30am. You will have an initial assessment when you walk-in. The assessment will last two hours. Please bring your date of , social security number, proof of address and proof of income to this appointment.) [facility] [Outside] - 01/07/17 10:45 am (The above appointment is with Elisa Gilliland. Please arrive 15 minutes early for paperwork. Please bring photo ID and proof of income for sliding fee determination. )
[2017-01-04] MEDS: Lithium Carbonate ER 450 MG TABLET.ER PO SCH (21:22)
[2017-01-05 09:15] VITALS: BP 116/68
--- NOTE | 2017-01-05 16:25 | Discharge Summary ---
Date of Encounter: 01/05/17 Time of Encounter: 16:00 Diagnosis - Discharge Diagnosis (1) Bipolar 1 disorder, manic, moderate Status: Acute (2) Tetrahydrocannabinol (THC) use disorder, moderate, dependence Status: Acute Medications - Discharge Medications Prescriptions: Buspirone HCl [Buspar] 15 mg PO TID #60 tablet Lamotrigine [Lamictal] 25 mg PO BID #[address] Carbonate ER [Eskalith] 900 mg PO HS #30 tablet.er Nicotine Polacrilex [Nicotine Gum] 2 mg BC Q2H PRN 12/24/16 [History] Buspirone HCl [Buspar] 15 mg PO TID #60 tablet 01/05/17 [Rx] Lamotrigine [Lamictal] 25 mg PO BID #60 tablet 01/05/17 [Rx] [address] Carbonate ER [Eskalith] 900 mg PO HS #30 tablet.er 01/05/17 [Rx] Allergies chlorpromazine [From Thorazine] Adverse Reaction (Verified 12/24/16 09:53) See Comments makes violent divalproex sodium [From Depakote] Adverse Reaction (Verified 12/24/16 09:53) See Comments makes violent haloperidol [From Haldol] Adverse Reaction (Verified 12/24/16 09:53) See Comments violent Results Procedures and tests throughout hospitalization: Completed Lab Orders Category Date Time Status [facility] [address] Stat [facility] 01/05/17 13:50 Completed Provider Date of admission: 12/24/16 15:14 Primary care physician: PCP NO Discharging clinician: Claudy Tovar Assessment and Plan - Patient/Caregiver Discharge Instructions Activity: resume usual activities as tolerated Diet: regular diet - Follow up Plan Follow up with: [facility] [Outside] (To establish as a client, you may walk in any Thursday from @ 9:30am 10:30am, from 12:30pm 1:30pm, or Thursday from 8:30am 9:30am. You will have an initial assessment when you walk-in. The assessment will last two hours. Please bring your date of , social security number, proof of address and proof of income to this appointment.) [facility] [Outside] - 01/07/17 10:45 am (The above appointment is with Elisa Gilliland. Please arrive 15 minutes early for paperwork. Please bring photo ID and proof of income for sliding fee determination. ) Functional capacity at discharge: independent ambulation Overall status at discharge: Stable Disposition: Home, Self-Care Hospital Course Hospital course: Ms. Olson is a 31 year old female admitted to evaluate and treat manic episode with psychosis. For details of admission please see H&P On the units patient displayed significant manic behavior with pressured speech loud singing and increased psychomotor activity and at times irritability and agitation. She was refusing medication and forced medication was obtained from the court. Medication including BuSpar and Lamictal and lithium were given regularly, patient showed improved mood and less agitation and irritability and less manic behavior. She denied any hallucination or suicidal ideation. Patient reached maximum hospitalization benefit and was ready for discharge. Prior to discharge patient was medically stable cooperative speech was coherent and not pressured. - Time Spent with Patient Total time spent providing and/or coordinating discharge services: Greater than 30 minutes Quality - Multiple Antipsychotics Patient discharged on 2 or more antipsychotic medications: No Procedures - Procedures Procedures: Medication Management, Crisis Stabilization, Supportive Therapy, Group Therapy, Psychoeducational Therapy Mental Status Exam - Mental Status Exam Patient orientation: Yes Person, Yes Time, Yes Place, Yes Circumstance Level of alertness: Alert, Other Patient appearance: Appropriate, Well Groomed, Bizarre, Thin Behavior: cooperative, impulsive, talkative, dramatic Psychomotor activity: Increased Eye contact: Maintains Eye Contact Mood description: Elevated, Euphoric, Expansive, Labile Affect description: congruent with mood, labile, euphoric Speech pattern: Coherent, Disorganized, Excessive, Pressured, Other ( ) Speech Volume: Normal Thought process: Linear, Tangential, Flight of Ideas Thought Content: No Suicidal ideation, No Homicidal ideation, No Overt delusions , Yes Ideas of reference, Yes Preoccupation, Yes Grandiose delusion (Pt believes all MDs should be jumping to prescibe Cannibis. Wants MJ advocacy grps in this Hosp.), Yes Obsessive thoughts Perceptual Disturbances: Yes Reacting to internal stimuli, No Visual hallucinations Judgment: Limited Insight: Minimal
[2017-01-05] MEDS: Nicotine 2 MG GUM BC PRN (17:33)
== END 2017-01-05 20:07 | disposition home or self-care (01) | DRG 753 ==
LOC: EMEROO 09:44 → 1ANU 15:14 → SUATTDRO 15:14 → 1ANU 15:15
PROVIDERS: ADMIT Psychiatry & Neurology Psychiatry; ATTEND Psychiatry & Neurology Psychiatry